=== PATIENT | male | born 2000 | race Caucasian/White ===

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

== ENCOUNTER 2021-03-22 22:55 | Emergency (ER) | payer SELFPAY ==
[~2021-03-22] VITALS: Ht 180.3 cm; Wt 59.9 kg
[2021-03-23] MEDS ORDERED: Vibramycin100 MG PO (01:43)
== END 2021-03-23 01:57 | disposition home or self-care (01) ==
LOC: ER 22:55
DX: L73.9 Follicular disorder, unspecified (principal); Z91.030 Bee allergy status; Z88.0 Allergy status to penicillin; Z88.5 Allergy status to narcotic agent; Z87.891 Personal history of nicotine dependence
CPT/HCPCS: 96372; 99283-25; A9270

== ENCOUNTER 2021-10-30 13:03 | Emergency (ER) | payer OTHER ==
[~2021-10-30] VITALS: Ht 180.3 cm; Wt 64.0 kg
[~2021-10-30 13:03] MED LIST changes: +Vibramycin100 MG PO
== END 2021-10-30 14:40 | disposition home or self-care (01) ==
LOC: ER 13:03
DX: S63.501A Unspecified sprain of right wrist, initial encounter (principal); Z88.0 Allergy status to penicillin; Z88.5 Allergy status to narcotic agent; F17.290 Nicotine dependence, other tobacco product, uncomplicated; X58.XXXA Exposure to other specified factors, initial encounter
CPT/HCPCS: 73110; 99283-25; A9270

== ENCOUNTER 2024-07-24 04:52 | Observation (INO) | payer OTHER ==
[~2024-07-24] VITALS: Ht 182.9 cm; Wt 61.0 kg
[~2024-07-24 04:52] MED LIST changes: +IBUP800 PO; +Robaxin750 MG PO
[2024-07-24 05:07] LABS: BASOPHILS ABSOLUTE AUTO 0.05 K/mm3 (0.00-0.23); BASOPHILS PERCENT AUTO 1 % (0-2); EOSINOPHILS PERCENT AUTO 0 % (0-6); Hemoglobin 14.8 g/dL (13.5-17.5); IMMATURE GRAN ABSOLUTE AUTO 0.02 K/mm3 (0.00-0.10); IMMATURE GRAN PERCENT AUTO 0 % (0-1); LYMPHOCYTES ABSOLUTE AUTO 1.35 K/mm3 (0.84-5.20); LYMPHOCYTES PERCENT AUTO 16 % (21-46); MONOCYTES ABSOLUTE AUTO 0.33 K/mm3 (0.16-1.47); MONOCYTES PERCENT AUTO 4 % (4-13); Mean Corpuscular HGB Conc 35.2 g/dL (31.5-36.5); Mean Corpuscular Volume 91 fL (80-100); Mean Platelet Volume 10.7 fL (9.1-12.4); NEUTROPHILS ABSOLUTE AUTO 6.94 K/mm3 (1.96-9.15); NEUTROPHILS PERCENT AUTO 80 % (41-73); Platelet Count 218 K/mm3 (150-400); RDW Coefficient Variation 11.4 % (11.7-14.2); RDW Standard Deviation 37.8 fL (35.1-46.3); Red Blood Cell Count 4.63 M/mm3 (4.30-5.90); White Blood Cell Count 8.69 K/mm3 (4.00-11.30)
[2024-07-24 05:30] LABS: Acetaminophen, Random <2.0 ug/mL (10.0-30.0); Alanine Aminotransfer (ALT/SGP 16 U/L (12-78); Albumin, Blood 4.4 g/dL (3.4-5.0); Albumin/Globulin Ratio 1.5 (0.8-1.8); Alk Phos 65 U/L (50-136); Anion Gap 12 mmol/L (3-11); Aspartate Aminotrans (AST/SGOT 18 U/L (12-37); Bilirubin, Total 0.6 mg/dL (0.1-1.0); Blood Urea Nitrogen 10 mg/dL (8-24); Bun/Creatinine Ratio 11.3 (12.0-20.0); CO2, Blood 23 mmol/L (21-32); Chloride, Blood 107 mmol/L (98-108); Creatinine, Blood 0.88 mg/dL (0.60-1.20); Ethanol (Alcohol), Blood, Med <3 mg/dL; Globulin, Blood 2.9 g/dL (2.2-4.0); Glomerular Filtration Rate 123 (60-); Glucose, Blood 150 mg/dL (70-99); Potassium, Blood 3.7 mmol/L (3.5-5.5); Salicylate <1.7 mg/dL (2.8-20.0); Sodium, Blood 138 mmol/L (136-145); Total Protein, Blood 7.3 g/dL (6.4-8.2)
[2024-07-24] MEDS ORDERED: NS 1,000 ML IV SCH (06:30)
[2024-07-24] MEDS ORDERED: TraZODone HCl 50 MG Tab PO PRN (10:40)
[2024-07-24] MEDS ORDERED: Prochlorperazine 25 MG Supp PR PRN (10:40)
[2024-07-24] MEDS ORDERED: FLU VACC TS2024-25(6MOS UP)/PF 45 MCG/0.5 ML SYRINGE IM PRN (10:40)
[2024-07-24] MEDS ORDERED: Acetaminophen 325 MG TABLET PO PRN (10:45)
[2024-07-24 16:05] VITALS: BP 116/75
--- NOTE | 2024-07-24 16:31 | NUR ---
ASSUMPTION OF CARE REPORT RECIEVED FROM ER NURSE. PT ARRIVED TO PCU AT 1550. PT ALERT AND ORIENTED X4, HE DOES DOZE OFF BUT WAKES UP AND ANSWERS QUESTIONS WHEN REASKED. PT MUMMBLING WORDS, AND REPORTS "HE WAS HAVING A DREAM." PT DENIES SI BUT WHEN ASKED ABOUT PLANS TO HARM HIMSELF HE STATED "I DID TODAY." HE REPORTS BLURRY VISION AND DIZZINESS. PT STATES "HE NEEDS HIS PHONE TO REACH HIS SON AND HE COULD NOT STAY BECUASE HE NEEDED TO KEEP HIS PHONE." DISCUSSED THE PLAN/REASON FOR HIM TO STAY ADMITTED, PT THEN AGREED TO STAY AND HANDED US HIS PHONE. HR IN THE 90'S, SINUS RHYTHM, DENIES CP/PRESSURE, NUMB/TINGLING, SBP STABLE. L/S CLEAR T/O, O2 >92% ON RA. WILL CONTINUR TO MONITOR PT.
--- NOTE | 2024-07-24 18:21 | NUR ---
SHIFT SUMMARY PT A&O X4. HR IN 80'S, SINUS RHYTHM, SBP STABLE. HE HAS BEEN RESTING IN BED SINCE ARRVIVAL. O2 >92% ON RA, BREATHING IS EVEN AND UNLABORED. DENIES ANY NEEDS AT THIS TIME. NO ACUTE CHANGES T/O SHIFT. PTS MOTHER TO BEDSIDE. WILL CONTINUE TO MONITOR PT AND REPORT TO EVENT PROMOTIONS COORDINATOR RN.
[2024-07-24 18:36] LABS: U Amphetamine Screen Not Detected; U Barbituate Screen Not Detected; U Benzodiazapine Screen Not Detected; U Buprenorphine Screen Not Detected; U Cannabinoids Screen Not Detected; U Cocaine Screen DETECTED; U Methadone Screen Not Detected; U Methamphetamine Screen Not Detected; U Opiates Screen Not Detected; U Oxycodone Screen Not Detected; U Phencyclidine Screen Not Detected
[2024-07-24 19:17] VITALS: BP 112/61
[2024-07-24 23:49] VITALS: BP 116/80
[2024-07-25 03:49] VITALS: BP 125/76
[2024-07-25] MEDS ORDERED: Nicotine 21 MG PATCH TOP SCH (04:35)
[2024-07-25 04:37] LABS: Albumin, Blood 4.4 g/dL (3.4-5.0); Albumin/Globulin Ratio 1.4 (0.8-1.8); Bilirubin, Total 0.6 mg/dL (0.1-1.0); Bun/Creatinine Ratio 5.6 (12.0-20.0); Calcium, Blood 8.7 mg/dL (8.5-10.1); Creatinine, Blood 1.08 mg/dL (0.60-1.20); Globulin, Blood 3.1 g/dL (2.2-4.0); Potassium, Blood 3.5 mmol/L (3.5-5.5); Total Protein, Blood 7.5 g/dL (6.4-8.2)
--- NOTE | 2024-07-25 05:15 | NUR ---
SHIFT SUMMARY ASSUMED CARE OF PT AT 1900. PT IS A/OX4. PT WAS VERY SLEEPY UNTIL 0200 IN THE AM. PT AWOKE AND ASKED TO USE THE PHONE. PT HAS 1:1 SITTER AND DENIED SI IDEATION. PT PLEASANT AND COOPERATIVE. PT WAS SCARED OF LAB DRAW BUT AGREED ANYWAYS. THIS NURSE TALKED TO PATIENT ABOUT WHAT BROUGHT HIM TO THE HOSPITAL. PT STATES THAT HE COUGHT HIS GF CLHEATING ON HIM AND WANTED TO "FEEL BETTER". PT STATES THAT HE HAD "A LOT" OF DRINKS AND WAS TAKING CAP FULL OF PILLS IN HOPES OF ONE OF THEM MAKING HIM FEEL BETTER. PT STATES" IT WAS NOT TO KILL MYSELF, I JUST WANTED TO FEEL BETTER". PT SAID HE CALLED THE HELP LINE BUT DID NOT THINK THEY WERE HELPFUL AND CONTINUED TO HIS PLAN OF DRINKING AND TAKING THE PILLS. PT STATES HE WILL NOT DO IT AGAIN AFTER THIS NURSE EDUCATED ABOUT THE EFFECTS ON HIS KIDNEY FUNCTION AND DRUG INTERACTIONS. PT CONCERNED ABOUT WHERE HE IS GOING TO LIVE NOW AND THAT HE HAS TO TOOTH CUTTER SPUR HIS SON TODAY. PT STATES NOT HAVING ANY FAMILY IN TOWN WHO COULD HELP HIM. PT FEELING ANXIOUS AND JITTERY. PT STATES HE USUALLY SMOKES AND VAPES EQUIVANENT TO 2 PACKS A DAY. HOSPITALIST NOTIFIED AND REVEIWED CHARTS.
[2024-07-25] MEDS ORDERED: Nicotine Polacrilex 2 MG Gum PO PRN (06:25)
[2024-07-25 07:24] VITALS: BP 125/94
[2024-07-25] MEDS ORDERED: Enoxaparin 40 MG/0.4 ML SYR SC SCH (09:00)
--- NOTE | 2024-07-25 09:02 | NUR ---
AMA NOTE PT ALERT AND ORIETNED X4. SINUS RHYTHM, HR IN 80'S, SBP STABLE, DENIES CP/PRESSURE, NUMB/TINGLING. O2 >92% ON RA, DENIES SOB, L/S CLEAR T/O. +BS, NO PAIN/TENDER. PT REPORTS BLURRY VISION HAS IMPROVED, DENIES DIZZINESS, HEADACHE, VISUAL OR AUDITORY DISTURBANCES. DISCUSSED RISK VS BENEFITS WITH PT, PT STILL WANTING TO LEAVE. HE SIGNED AMA FORM, PROVIDER NOTIFIED. PT LEFT AROUND 0800 WITH HIS MOTHER.
== END 2024-07-25 08:02 | disposition left against medical advice (07) ==
LOC: ER 04:52 → ERHOLD 04:53 → PCU 04:53
PROVIDERS: Emergency Medicine; ADMIT Internal Medicine
DX: T50.992A Poisoning by other drugs, medicaments and biological substances, intentional self-harm, initial encounter (principal); Z53.29 Procedure and treatment not carried out because of patient's decision for other reasons; F60.9 Personality disorder, unspecified; E87.20 Acidosis, unspecified; R94.31 Abnormal electrocardiogram [ECG] [EKG]; F17.290 Nicotine dependence, other tobacco product, uncomplicated; Z88.0 Allergy status to penicillin; Z88.5 Allergy status to narcotic agent; Z91.038 Other insect allergy status
CPT/HCPCS: 36415; 80053; 80320; 82607; 82746; 83605; 85025; 93005; 93010; 96360; 99285-25; A9270; G0378; G0480; J7030

== ENCOUNTER 2025-03-16 21:40 | Emergency (ER) | payer OTHER ==
[~2025-03-16] VITALS: Ht 175.3 cm; Wt 54.4 kg
[~2025-03-16 21:40] MED LIST changes: +AMOCLA875 PO; +IBUP600 PO
[2025-03-16] MEDS ORDERED: NS 1,000 ML IV SCH (21:45)
[2025-03-16 22:11] LABS: BASOPHILS ABSOLUTE AUTO 0.05 K/mm3 (0.00-0.23); BASOPHILS PERCENT AUTO 1 % (0-2); EOSINOPHILS ABSOLUTE AUTO 0.01 K/mm3 (0.00-0.68); EOSINOPHILS PERCENT AUTO 0 % (0-6); Hematocrit 43.1 % (37.0-53.0); Hemoglobin 15.2 g/dL (13.5-17.5); IMMATURE GRAN ABSOLUTE AUTO 0.01 K/mm3 (0.00-0.10); IMMATURE GRAN PERCENT AUTO 0 % (0-1); LYMPHOCYTES ABSOLUTE AUTO 1.90 K/mm3 (0.84-5.20); LYMPHOCYTES PERCENT AUTO 32 % (21-46); MONOCYTES ABSOLUTE AUTO 0.47 K/mm3 (0.16-1.47); MONOCYTES PERCENT AUTO 8 % (4-13); Mean Corpuscular HGB Conc 35.3 g/dL (31.5-36.5); Mean Corpuscular Volume 89 fL (80-100); NEUTROPHILS ABSOLUTE AUTO 3.47 K/mm3 (1.96-9.15); NEUTROPHILS PERCENT AUTO 59 % (41-73); NRBC ABSOLUTE 0.00 K/mm3 (0.00-0.02); NRBC Auto 0.0 /100 WBC (0.0-0.2); Platelet Count 213 K/mm3 (150-400); RDW Coefficient Variation 11.5 % (11.7-14.2); RDW Standard Deviation 36.8 fL (35.1-46.3)
[2025-03-16 22:29] LABS: Anion Gap 7.0 mmol/L (3-11); Blood Urea Nitrogen 14.0 mg/dL (8-24); CO2, Blood 26.0 mmol/L (21-32); Calcium, Blood 8.7 mg/dL (8.5-10.1); Chloride, Blood 107.0 mmol/L (98-108); Creatinine, Blood 0.94 mg/dL (0.60-1.20); Glucose, Blood 104.0 mg/dL (70-99); Magnesium, Blood 2.5 mg/dL (1.6-2.4); Potassium, Blood 4.0 mmol/L (3.5-5.5); Sodium, Blood 136.0 mmol/L (136-145)
[2025-03-16] MEDS ORDERED: IBUP600 PO (22:57)
[2025-03-16] MEDS ORDERED: AMOCLA875 PO (22:57)
[2025-03-16 23:00] VITALS: BP 127/99
== END 2025-03-16 23:00 | disposition home or self-care (01) ==
LOC: ER 21:40
PROVIDERS: Emergency Medicine
DX: I31.9 Disease of pericardium, unspecified (principal); F18.10 Inhalant abuse, uncomplicated; K02.9 Dental caries, unspecified; Z87.891 Personal history of nicotine dependence
CPT/HCPCS: 71045; 80048; 83735; 85025; 93005; 93010; 96360; 99284-25; A9270; J7030